=== PATIENT | male | born 1990 | race African-American/Black ===

== ENCOUNTER 2019-01-15 16:40 | Inpatient (IN) | payer OTHER ==
[~2019-01-15] VITALS: Ht 185.4 cm; Wt 132.7 kg
[2019-01-15] MEDS ORDERED: MOM 30ML SUSPENSION UDC PO PRN (18:45)
[2019-01-15] MEDS ORDERED: ACETAMINOPHEN TAB 650MG DOSE (2X325MG) PO PRN (18:45)
[2019-01-15] MEDS ORDERED: MAALOX 30 ML SUSP *UDC PO PRN (18:45)
[2019-01-15 20:28] VITALS: BP 158/80
[2019-01-15] MEDS: risperiDONE 2 MG TAB PO SCH (22:40)
[2019-01-16 05:41] VITALS: BP 158/92
[2019-01-16] MEDS: risperiDONE 2 MG TAB PO SCH ×2 (09:35→21:05)
--- NOTE | 2019-01-16 15:39 | MHHPEPDOC ---
[facility] History & Physical History and Physical DATE OF ADMISSION: Jan 15, 2019 at 18:40 CHIEF COMPLAINT: Depression HISTORY OF PRESENT ILLNESS: 28-year-old male, who was transferred to inpatient psychiatry unit from [facility] for c/o depression and suicidal thought. Pt denied any physical complaint. Work up done at [facility] did not show any abnormal blood or urine work up. WBC 8.3, Hb 13.9, Plats 267, BUN/Cr 8/1.2, LFTs- wnl, TSH 1.87, US negative, urine drug screen negative. Hospitalist service was consulted to medical evaluation and [facility] history and physical. Pt was seen and examined at second floor inpatient psychiatry unit along with nursing staff. Pt was sitting comfortably on examination table. Pt denied any physical complaint but c/o feeling depressed. Pt denied any active suicidal or homicidal ideations. ROS- 10 points review of system was performed and it was negative except as per HPI. Home meds- No prescribed home meds Allergies-Lurasidone- rash PMH- h/o resolved idiopathic intracranial hypertension, depression PSxH- none SH- never smoker, denied alcohol intake or illicit drug abuse. Pt is originally from [place], but to moved [facility] to be with her girl friend. Independent for activities of daily living. Does not have kids. FH- Mother had Asthma, reviewed, non contributory PHYSICAL EXAMINATION: General appearance: comfortable, not in acute distress HEET- oral mucosa moist/pink Neck- supple RS- clear to auscultation, no added sounds CVS- regular rate and rhythm Abdomen- soft, non tender, normal bowel sounds heard Extremities- no peripheral edema MECHANICAL ESTIMATOR- Alert, oriented, no focal deficit Psychiatric- mood depressed ASSESSMENT: 28 y/o M with h/o depression was transferred from [facility] for c/o suicidal ideation Recent labs and vital sign reviewed Impression- depression with suicidal ideation Plan Depression/suicidal ideation Further management as per psychiatry team. Hospitalist team will sign off, please reconsult prn. Vital Signs Vital Signs Date Time Temp Pulse Resp B/P (MAP) Pulse Ox O2 Delivery O2 Flow Rate FiO2 01/16/19 05:41 97.4 107 18 158/92 (114) 01/15/19 20:28 98 Room Air Medications No Active Prescriptions or Reported Meds Allergies Coded Allergies: lurasidone (Verified Allergy, Severe, 01/15/19) hives, SOB A-FIB/CHADSVASC A-FIB History Current/History of A-Fib/PAF?: No Current PO Anticoag Therapy: No EVELIO AMOR MD Jan 16, 2019 15:39
[2019-01-16 16:06] VITALS: BP 123/73
--- NOTE | 2019-01-16 18:13 | MHHPE ---
DATE OF ADMISSION: 01/15/2019 CURRENT MEDICATIONS: None CHIEF COMPLAINT: Suicidal ideation with impulse to stab self with knife or cut his wrist. HISTORY OF PRESENT ILLNESS: This is a 28-year-old -Panamanian male living with his girlfriend. The patient is single. The patient's girlfriend brought him to the [facility] emergency room after he took a knife out of the drawer and threatened to kill himself. The girlfriend was able to talk the patient down and bring him into the emergency room. The patient has a history of schizoaffective disorder and currently is on no medications and not undergoing treatment of any kind. The patient states that he has been feeling depressed for several weeks. There are no precipitating stressors. His appetite is down. His weight is stable. Concentration is poor. Motivation is poor. He gets little pleasure out of life. He has trouble sleeping at night. He feels tired most of the time. He does hear voices frequently. They call his name. He tries to ignore them. The voices can be quite loud at times. He also reports some paranoia. He claims that other people are looking at him or judging him. The patient reports having some social phobic symptoms. He states that he is shy. He also has a diagnosis of obsessive compulsive disorder (OCD). He checks things and counts things in multiples of 5. PAST PSYCHIATRIC HISTORY: The patient was in treatment 5 years ago in [place]. He was placed on Latuda but had an allergic reaction. He was switched to another medication that he cannot recall. He was also on trazodone for sleep with some benefit. As a child he was in anger management classes. MEDICAL HISTORY: The patient states he is healthy. ALLERGIES: LATUDA. LEGAL HISTORY: The patient denies. CHEMICAL DEPENDENCY: None. FAMILY PSYCHIATRIC HISTORY: The patient's father is paranoid schizophrenic. Mother has a history of depression. One of his sisters has bipolar disorder. SOCIAL HISTORY: The patient was born and raised in [place], [place]. The patient got his GED and has one year of college. 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 Relationship with his mother is good. The patient is estranged from his father. Relationship with his three sisters is marginal. The patient met his girlfriend on line and moved up here to the [facility] 18 months ago. The patient states that he likes the environment here and denies having any major stressors. MENTAL STATUS EXAMINATION: The patient is alert, oriented, cooperative. The patient volunteers little. He does report some paranoia with auditory hallucinations. Mood is moderately depressed with passive suicidal ideation. Grooming and hygiene appear good. Eye contact is good. Insight and judgment appear poor. The patient is a potential danger to himself in my opinion. Cognitive functions appear intact. Length of stay is 5 to 7 days. ASSESSMENT: The patient appears to have had a relapse of his schizoaffective disorder. He does not recall the name of the previous antipsychotic agent that he was on. THe patient has received several doses of Risperdal and appears to be tolerating it well. The patient may need an antidepressant as well. DIAGNOSIS: Schizoaffective disorder, depressed. PLAN: admission. Involve in hospital milieu. Continue Risperdal 2 mg twice a day. The patient to see Dr. Castro tomorrow. The patient may need an antidepressant medication. Staff to work on discharge planning. SANTOS
[2019-01-16] MEDS: traZODone 50 MG TAB PO PRN (21:42)
[2019-01-17 06:20] VITALS: BP 126/80
[2019-01-17] MEDS: risperiDONE 2 MG TAB PO SCH ×2 (08:09→20:00)
--- NOTE | 2019-01-17 09:54 | MHIPNPDOC ---
[facility] Progress Note Progress Note DATE OF SERVICE: 01/17/19 HISTORY: Per Dr. Barrera: "This is a 28-year-old -Colombian male living with his girlfriend. The patient is single. The patient's girlfriend brought him to the [facility] emergency room after he took a knife out of the drawer and threatened to kill himself. The girlfriend was able to talk the patient down and bring him into the emergency room. The patient has a history of schizoaffective disorder and currently is on no medications and not undergoing treatment of any kind. The patient states that he has been feeling depressed for several weeks. There are no precipitating stressors. His appetite is down. His weight is stable. Concentration is poor. Motivation is poor. He gets little pleasure out of life. He has trouble sleeping at night. He feels tired most of the time. He does hear voices frequently. They call his name. He tries to ignore them. The voices can be quite loud at times. He also reports some paranoia. He claims that other people are looking at him or judging him. The patient reports having some social phobic symptoms. He states that he is shy. He also has a diagnosis of obsessive compulsive disorder (OCD). He checks things and counts things in multiples of 5." VITAL SIGNS: See below. NEW TEST RESULTS: See below. CURRENT MEDICATIONS: See below. MENTAL STATUS EXAMINATION: The patient is alert, oriented, cooperative. The patient is more open to talking about his current stressors mostly relating to not being able to get a job. He does report improved paranoia and auditory hallucinations with current med. Mood is moderately depressed still but denies SI, passive suicidal ideation. Grooming and hygiene appear good. Eye contact is good. Insight and judgment appear poor-fair. Cognitive functions appear intact. DIAGNOSES: Schizoaffective disorder, depressed. ASSESSMENT::Pt seen and states that his mood is better. States he's tolerating his risperidone well and feels it's beneficial, does not feel it needs to increased at this time. States he slept well last night after sleeping very erratic at home. States he took a lot of naps yesterday and encouraged to attend groups during the day and socialize with her peers during the day as to more regulate his sleep schedule to him just sleeping at night which will event ually allow him to get a job in the future due to more regular sleep. He denies SI/HI, hallucinations, delusions. Pt feels safe here. MANAGEMENT PLAN: continue plan risperidone 2mg bid trazodone 50mg qhs prn insomnia TIME SPENT: 30 minutes. Vital Signs Vital Signs Date Time Temp Pulse Resp B/P (MAP) Pulse Ox O2 Delivery O2 Flow Rate FiO2 01/17/19 06:20 98.1 71 16 126/80 (95) 01/15/19 20:28 98 Room Air Current Medications Current Medications Medications (Trade) Dose Ordered Sig/Hugo Route PRN Reason Start Time Stop Time Status Last Admin Dose Admin Acetaminophen (Tylenol Tab) 650 mg Q6HP PRN PO HEADACHE or DISCOMFORT 01/15/19 18:45 Al Hydrox/Mg Hydrox/Simethicone (Mylanta) 30 ml Q4HP PRN PO HEARTBURN/INDIGESTION 01/15/19 18:45 Home Med (Med Rec Complete!) ASDIRECTED XX 01/15/19 17:45 01/15/19 17:49 DC Magnesium Hydroxide (Milk Of Magnesia) 30 ml DAILYPRN PRN PO CONSTIPATION 01/15/19 18:45 Risperidone (RisperDAL) 2 mg BID PO 01/15/19 21:00 01/17/19 08:09 Trazodone HCl (Desyrel) 50 mg QHSP PRN PO INSOMNIA 01/15/19 18:45 01/16/19 21:42 Allergies Coded Allergies: lurasidone (Verified Allergy, Severe, 01/15/19) PALMER carreno KATHRINE E. DO Jan 17, 2019 9:54 am
[2019-01-17 15:24] VITALS: BP 141/78
[2019-01-17] MEDS: traZODone 50 MG TAB PO PRN (20:41)
[2019-01-18 06:41] VITALS: BP 146/80
[2019-01-18] MEDS: risperiDONE 2 MG TAB PO SCH ×2 (08:21→20:04)
--- NOTE | 2019-01-18 09:48 | MHIPNPDOC ---
[facility] Progress Note Progress Note DATE OF SERVICE: 01/18/19 HISTORY: Per Dr. Barrera: "This is a 28-year-old -Tajik male living with his girlfriend. The patient is single. The patient's girlfriend brought him to the [facility] emergency room after he took a knife out of the drawer and threatened to kill himself. The girlfriend was able to talk the patient down and bring him into the emergency room. The patient has a history of schizoaffective disorder and currently is on no medications and not undergoing treatment of any kind. The patient states that he has been feeling depressed for several weeks. There are no precipitating stressors. His appetite is down. His weight is stable. Concentration is poor. Motivation is poor. He gets little pleasure out of life. He has trouble sleeping at night. He feels tired most of the time. He does hear voices frequently. They call his name. He tries to ignore them. The voices can be quite loud at times. He also reports some paranoia. He claims that other people are looking at him or judging him. The patient reports having some social phobic symptoms. He states that he is shy. He also has a diagnosis of obsessive compulsive disorder (OCD). He checks things and counts things in multiples of 5." VITAL SIGNS: See below. NEW TEST RESULTS: See below. CURRENT MEDICATIONS: See below. MENTAL STATUS EXAMINATION: The patient is alert, oriented, cooperative. The patient is more open to talking about his current stressors mostly relating to not being able to get a job. He denies paranoia and auditory hallucinations with current med today. Mood is more full. still but denies SI, passive suicidal ideation. Grooming and hygiene appear good. Eye contact is good. Insight and judgment appear fair. He is future oriented toward getting a job. Cognitive functions appear intact. DIAGNOSES: Schizoaffective disorder, depressed. ASSESSMENT::Pt seen and states that his mood is he's "ok". States he's tolerating his risperidone well and feels it's beneficial, does not feel it needs to increased at this time. States he slept thru the night well last night after being awake and attending groups during the day, all day. States he's learning coping mechanisms in group that he finds helpful. States his biggest goal is to get a job in the future and discussed ways in which to boost his eligibility of getting a job like building a resume (gave him a resume template to help him), getting a teacher recommendation, positive words to use during interview, etc. He appears more hopeful with the help so that he can be more successful in getting a job in the future. He denies SI/HI, hallucinations, delusions. Pt feels safe here. MANAGEMENT PLAN: d/c home tomorrow risperidone 2mg bid trazodone 50mg qhs prn insomnia TIME SPENT: 30 minutes. Vital Signs Vital Signs Date Time Temp Pulse Resp B/P (MAP) Pulse Ox O2 Delivery O2 Flow Rate FiO2 01/18/19 06:41 97.3 101 18 146/80 (102) 01/15/19 20:28 98 Room Air Current Medications Current Medications Medications (Trade) Dose Ordered Sig/Hugo Route PRN Reason Start Time Stop Time Status Last Admin Dose Admin Acetaminophen (Tylenol Tab) 650 mg Q6HP PRN PO HEADACHE or DISCOMFORT 01/15/19 18:45 Al Hydrox/Mg Hydrox/Simethicone (Mylanta) 30 ml Q4HP PRN PO HEARTBURN/INDIGESTION 01/15/19 18:45 Home Med (Med Rec Complete!) ASDIRECTED XX 01/15/19 17:45 01/15/19 17:49 DC Magnesium Hydroxide (Milk Of Magnesia) 30 ml DAILYPRN PRN PO CONSTIPATION 01/15/19 18:45 Risperidone (RisperDAL) 2 mg BID PO 01/15/19 21:00 01/18/19 08:21 Trazodone HCl (Desyrel) 50 mg QHSP PRN PO INSOMNIA 01/15/19 18:45 01/17/19 20:41 Allergies Coded Allergies: lurasidone (Verified Allergy, Severe, 01/15/19) PALMER carreno KATHRINE E. DO Jan 18, 2019 9:48 am
[2019-01-18 18:05] VITALS: BP 154/91
[2019-01-18] MEDS: traZODone 50 MG TAB PO PRN (20:45)
[2019-01-19 06:28] VITALS: BP 160/82
[2019-01-19] MEDS: risperiDONE 2 MG TAB PO SCH (08:07)
[2019-01-19] MEDS ORDERED: TRAZ-252 PO (08:42)
[2019-01-19] MEDS ORDERED: RISP2TAB32 PO (08:42)
--- NOTE | 2019-01-19 08:42 | MHDSPDOC ---
[facility] Discharge Summary Discharge Summary DATE OF ADMISSION: Jan 15, 2019 at 6:40 pm DATE OF DISCHARGE: Jan 19, 2019 DISCHARGE DIAGNOSES: Schizoaffective disorder, depressed. REASON FOR ADMISSION: Per Dr. Barrera: "This is a 28-year-old -Ivorian male living with his girlfriend. The patient is single. The patient's girlfriend brought him to the [facility] emergency room after he took a knife out of the drawer and threatened to kill himself. The girlfriend was able to talk the patient down and bring him into the emergency room. The patient has a history of schizoaffective disorder and currently is on no medications and not undergoing treatment of any kind. The patient states that he has been feeling depressed for several weeks. There are no precipitating stressors. His appetite is down. His weight is stable. Concentration is poor. Motivation is poor. He gets little pleasure out of life. He has trouble sleeping at night. He feels tired most of the time. He does hear voices frequently. They call his name. He tries to ignore them. The voices can be quite loud at times. He also reports some paranoia. He claims that other people are looking at him or judging him. The patient reports having some social phobic symptoms. He states that he is shy. He also has a diagnosis of obsessive compulsive disorder (OCD). He checks things and counts things in multiples of 5." CONSULTANTS INVOLVED: none TREATMENT AND PROGRESS ON THE UNIT : Pt was admitted to [facility], seen for psychiatric assessment and started on risperidone 2mg bid for schizoaffective d/o that he found very beneficial and tolerated well. He was provided trazodone 50mg qhs prn insomnia and he sleep became more regular with awake during the day and asleep thru the night. Pt found his medications beneficial and tolerated them well. He attended groups daily during his stay. His symptoms improved with treatment. He was given a template on resume building to help him make a resume and get a job in the future which was his biggest goal. On day of discharge he denied depression, anxiety, insomnia, SI/HI, hallucinations, delusions. He was discharged home with follow-up at [facility]. He felt safe for discharge. DISCHARGE ASSESSMENT: Pt seen and states that his mood is he's "good" and that he's looking forward to going home today with his girlfriend who is very supportive. States he's tolerating his risperidone well and feels it's beneficial, does not feel it needs to increased at this time. States he slept thru the night well last night after being awake and attending groups during the day, all day. States he's learning coping mechanisms in group that he finds helpful. States his biggest goal is to get a job in the future and was given a resume template to help him create one for himself. He appears more hopeful with the help so that he can be more successful in getting a job in the future. He denies depression, anxiety, insomnia, SI/HI, hallucinations, delusions. Pt feels safe safe to d/c home today. MENTAL STATUS EXAMINATION ON DISCHARGE: The patient is alert, oriented, cooperative. He states his mood is "good" and his affect appears euthymic and full range. He denies paranoia and auditory hallucinations with current med. He denies SI/HI, passive suicidal ideation. Grooming and hygiene appear good. Eye contact is good. Insight and judgment appear good. He is future oriented toward getting a job. Cognitive functions appear intact. MEDICATIONS ON DISCHARGE: risperidone 2mg bid trazodone 50mg qhs prn insomnia PLAN/FOLLOWUP ARRANGEMENTS: D/c home with follow-up at [facility] ([facility]3]. The amount of time spent in the coordination of care for this patient was approximately 30 minutes. Vital Signs/I&Os Vital Signs Date Time Temp Pulse Resp B/P (MAP) Pulse Ox O2 Delivery O2 Flow Rate FiO2 01/19/19 06:28 97.9 110 18 160/82 (108) 01/15/19 20:28 98 Room Air Medications No Active Prescriptions or Reported Meds Allergies Coded Allergies: lurasidone (Verified Allergy, Severe, 01/15/19) PALMER carreno KATHRINE E. DO Jan 19, 2019 8:42 am
== END 2019-01-19 13:10 | disposition home or self-care (01) | DRG 750 ==
LOC: M ED 16:40 → M ED INP 18:40 → M PSY 20:03
PROVIDERS: ADMIT Psychiatry & Neurology Psychiatry; ATTEND Psychiatry & Neurology Psychiatry
DX: F25.1 Schizoaffective disorder, depressive type (principal); R45.851 Suicidal ideations; Z88.8 Allergy status to other drugs, medicaments and biological substances